=== PATIENT | male | born 2000 | race Caucasian/White ===

== ENCOUNTER 2021-10-31 08:31 | Emergency (ER) | payer SELFPAY ==
[2021-10-31 08:56] VITALS: BP 115/77; PULSE 88; RESP 14; TEMP 97.8
--- NOTE | 2021-10-31 09:49 | XR ---
EXAMINATION TYPE: XR shoulder complete 3 views LT DATE OF EXAM: 10/31/2021 Comparison: None Clinical History: 21-year-old male with pain Findings: AC joint appears intact. Subacromial space is preserved. No tendinous or bursal calcifications. No ac [place] fracture, subluxation, or dislocation. Impression: No acute osseous abnormality seen.
--- NOTE | 2021-10-31 10:22 | ED ---
General Adult HPI - General Chief complaint: Extremity Problem,Nontraumatic Stated complaint: Shoulder pain Time Seen by Provider: 10/31/21 09:00 Source: patient, RN notes reviewed, old records reviewed Mode of arrival: ambulatory Limitations: no limitations - History of Present Illness Initial comments: This is a 21-year-old male who presents emergency Department complaining of left shoulder pain. Patient states he doesn't physical job but doesn't remember injuring it. Patient states he woke up today and he can of abduction with the shoulder causes him pain. Patient has external rotation without problem. Patient has no numbness or tingling. Patient has a swelling or redness. Patient is taking no medications for it. - Related Data Allergies Allergy/AdvReac Type Severity Reaction Status Date / Time No Known Allergies Allergy Verified 10/31/21 08:56 Review of Systems ROS Statement: Those systems with pertinent positive or pertinent negative responses have been documented in the HPI. ROS Other: All systems not noted in ROS Statement are negative. Past Medical History Past Medical History: No Reported History History of Any Multi-Drug Resistant Organisms: None Reported Past Surgical History: No Surgical Hx Reported Past Psychological History: No Psychological Hx Reported Smoking Status: Never smoker Past Alcohol Use History: Occasional Past Drug Use History: None Reported General Exam - General Exam Comments Initial Comments: GENERAL Patient is well-developed and well-nourished. Patient is in mild distress. EYES Patient's pupils are equal and round. Extraocular motion is intact SKIN Unremarkable NEURO The patient is alert and oriented 3 PYSCH Patient has normal interpersonal interactions. MUSCULOSKELETAL Patient does have full range of motion of the shoulder but it hurts to do any kind of abduction. Patient does have some anterior shoulder tenderness on palpation Limitations: no limitations Course Vital Signs 10/31/21 08:53 Temperature 97.8 F Pulse Rate 88 Respiratory 14 Rate Blood Pressure 115/77 O2 Sat by Pulse 98 Oximetry Medical Decision Making - Medical Decision Making X-rays shoulder shows no acute abnormality. Disposition Clinical Impression: Shoulder bursitis Disposition: HOME SELF-CARE Condition: Good Instructions (If sedation given, give patient instructions): Shoulder Bursitis (ED) Additional Instructions: Patient should take Motrin when necessary for pain Is patient prescribed a controlled substance at d/c from ED?: No Referrals: None,Stated [Primary Care Provider] - 1-2 days Time of Disposition: 10:22
== END 2021-10-31 11:08 | disposition home or self-care (01) ==
LOC: EC 08:31
DX: M75.52 Bursitis of left shoulder (principal)
CPT/HCPCS: 99283

== ENCOUNTER 2022-09-29 22:03 | Emergency (ER) | payer OTHER ==
[2022-09-29 22:11] VITALS: BP 150/90; PULSE 88; RESP 18; TEMP 99.8
[2022-09-30] MEDS ORDERED: IBUPROFEN 800 MG TAB PO STA (00:13)
[2022-09-30] MEDS ORDERED: FLUTICASONE 50MCG/SPRAY NASAL 16GM EA NOSTRIL STA (00:14)
--- NOTE | 2022-09-30 00:19 | ED ---
URI HPI - General Chief Complaint: Upper Respiratory Infection Stated Complaint: Weakness,Dizziness,Sore Throat Time Seen by Provider: 09/30/22 00:04 Source: patient Mode of arrival: ambulatory Limitations: no limitations - History of Present Illness Initial Comments: Patient is a 22 year old male presenting with upper respiratory symptoms. Patient reports nasal congestion, dry cough, sore throat, chills, lightheadedness. No chest pain or shortness of breath. No abdominal pain, nausea, vomiting. Patient states he recently returned from the [facility] with possible recent sick contacts. - Related Data Previous Rx's Medication Instructions Recorded Amoxicillin 875 mg PO Q12HR #20 tablet 09/30/22 Ibuprofen [Motrin] 800 mg PO Q6H PRN #30 tab 09/30/22 Allergies Allergy/AdvReac Type Severity Reaction Status Date / Time No Known Allergies Allergy Verified 10/31/21 08:56 Review of Systems ROS Statement: Those systems with pertinent positive or pertinent negative responses have been documented in the HPI. ROS Other: All systems not noted in ROS Statement are negative. Past Medical History Past Medical History: No Reported History History of Any Multi-Drug Resistant Organisms: None Reported Past Surgical History: No Surgical Hx Reported Past Psychological History: No Psychological Hx Reported Smoking Status: Never smoker Past Alcohol Use History: Occasional Past Drug Use History: None Reported General Exam Limitations: no limitations General appearance: alert, in no apparent distress Head exam: Present: atraumatic, normocephalic, normal inspection ENT exam: Present: normal oropharynx (Erythema without tonsillar swelling or exudate) Respiratory exam: Present: normal lung sounds bilaterally. Absent: respiratory distress, wheezes, rales, rhonchi, stridor Cardiovascular Exam: Present: regular rate, normal rhythm, normal heart sounds. Absent: systolic murmur, diastolic murmur, rubs, gallop, clicks Neurological exam: Present: alert, oriented X3, CN II-XII intact Psychiatric exam: Present: normal affect, normal mood Skin exam: Present: warm, dry, intact, normal color. Absent: rash Course Vital Signs 09/29/22 22:07 Temperature 99.8 F H Pulse Rate 88 Respiratory 18 Rate Blood Pressure 150/90 O2 Sat by Pulse 100 Oximetry Medical Decision Making - Medical Decision Making Was pt. sent in by a medical professional or institution (, PA, [employer], urgent care, hospital, or correction...) When possible be specific @ -No Did you speak to anyone other than the patient for history (EMS, parent, family, police, friend...)? What history was obtained from this source @ -No Did you review nursing and triage notes (agree or disagree)? Why? @ -I reviewed and agree with nursing and triage notes Were old charts reviewed (outside hosp., previous admission, EMS record, old EKG, old radiological studies, urgent care reports/EKG's, correction records)? Report findings @ -No old charts were reviewed Differential Diagnosis (chest pain, altered mental status, abdominal pain women, abdominal pain men, vaginal bleeding, weakness, fever, dyspnea, syncope, headache, dizziness, GI bleed, back pain, seizure, CVA, palpatations, mental health)? @ -URI, sinusitus,strep pharyngitis, viral pharyngitis, pneumonia, bronchitis- this list is not meant to be all-inclusive EKG interpreted by me (3pts min.). @ -As above X-rays interpreted by me (1pt min.). @ -None done CT interpreted by me (1pt min.). @ -None done U/S interpreted by me (1pt. min.). @ -None done What testing was considered but not performed or refused? (CT, X-rays, U/S, labs)? Why? @ -None] What meds were considered but not given or refused? Why? @ -[None] Did you discuss the management of the patient with other professionals (professionals i.e. , PA, [employer], lab, RT, psych nurse, social sciences chair, improvement director, teacher, senior administrative services officer, caser)? Give summary @ -[No] Was smoking cessation discussed for >3mins.? @ -[No] Was critical care preformed (if so, how long)? @ -[No] Were there social determinants of health that impacted care today? How? (Homelessness, low income, unemployed, alcoholism, drug addiction, transportation, low edu. Level, literacy, decrease access to med. care, alf, rehab)? @ -[No] Was there de-escalation of care discussed even if they declined (Discuss DNR or withdrawal of care, Hospice)? DNR status @ -[No] What co-morbidities impacted this encounter? (DM, HTN, Smoking, COPD, CAD, Cancer, CVA, ARF, Chemo, Hep., AIDS, mental health diagnosis, sleep apnea, morbid obesity)? @ -[None] Was patient admitted / discharged? Hospital course, mention meds given and route, prescriptions, significant lab abnormalities, going to OR and other pertinent info. @ -Discharged. Patient has strep he is sent home with amoxicillin Undiagnosed new problem with uncertain prognosis? @ -[No] Drug Therapy requiring intensive monitoring for toxicity (Heparin, Nitro, Insulin, Cardizem)? @ -[No] Were any procedures done? @ -[No] Diagnosis/symptom? @ -Strep pharyngitis Acute, or Chronic, or Acute on Chronic? @ Acute Uncomplicated (without systemic symptoms) or Complicated (systemic symptoms)? @ -Uncomplicated Side effects of treatment? @ -[No] Exacerbation, Progression, or Severe Exacerbation? @ -[No] Poses a threat to life or bodily function? How? (Chest pain, [place], [place], pneumonia, PE, COPD, DKA, ARF, appy, cholecystitis, CVA, Diverticulitis, Homicidal, Suicidal, threat to staff... and all critical care pts) @ -[No] Dr. Stovall is my attending - Lab Data Lab Results 09/29/22 09/30/22 Range/Units 22:34 00:47 Influenza Type A (PCR) Not Detected (Not Detectd) Influenza Type B (PCR) Not Detected (Not Detectd) RSV (PCR) Not Detected (Not Detectd) SARS-CoV-2 (PCR) Not Detected (Not Detectd) Group A Strep (PCR) DETECTED A (Not Detectd) Disposition Clinical Impression: Strep throat Disposition: HOME SELF-CARE Condition: Good Instructions (If sedation given, give patient instructions): Strep Throat (ED) Additional Instructions: Take medication as directed. Please follow-up with your primary care provider in 1-2 days. Return to the emergency department if you experience new, concerning, or worsening symptoms. Prescriptions: Amoxicillin 875 mg PO Q12HR #20 tablet Ibuprofen [Motrin] 800 mg PO Q6H PRN #30 tab PRN Reason: Pain Is patient prescribed a controlled substance at d/c from ED?: No Referrals: None,Stated [Primary Care Provider] - 1-2 days
[2022-09-30] MEDS ORDERED: AMOXICILLIN 875 MG TAB PO STA (01:26)
== END 2022-09-30 01:42 | disposition home or self-care (01) ==
LOC: EC 22:03
DX: J02.0 Streptococcal pharyngitis (principal); B95.0 Streptococcus, group A, as the cause of diseases classified elsewhere; Z20.822 Contact with and (suspected) exposure to COVID-19
CPT/HCPCS: 87636; 87651; 99284